=== PATIENT | female | born 2000 | race Caucasian/White ===

== ENCOUNTER 2025-05-29 20:51 | Emergency (ER) | payer BC, SELFPAY ==
[2025-05-29 20:58] VITALS: BP 142/79; PULSE 112; TEMP 37.6; O2SAT 98; BMI 27.5
--- NOTE | 2025-05-29 21:12 | ED_ITS ---
Documented by User: JACOB Bates 05/29/25 21:49 HPI HPI - General Adult General Chief complaint: Dental/Oral Stated complaint: INFECTION IN TOOTH, BODY ACHES, NAUSEAUS Time Seen by Provider: 05/29/25 21:03 Source: patient Mode of arrival: walk-in History of Present Illness HPI narrative: Patient is a 24-year-old female that presents with complaints of tooth pain and abscess formation on her lower front teeth. She cannot remember the last time she was at the dentist. She reports chills and bodyaches yesterday that have been somewhat improving today. She feels like the right side of her face is swollen. Related Data Previous Rx's ?Medication ?Instructions ?Recorded amoxicillin 875 mg-potassium 1 tab PO BID 10 days #20 tabs 05/29/25 clavulanate 125 mg tablet chlorhexidine gluconate 0.12 % 15 ml buccal BID 5 days #300 mL 05/29/25 mouthwash Allergies Allergy/AdvReac Type Severity Reaction Status Date / Time No Known Drug Allergies Allergy Verified 05/29/25 20:58 Review of Systems ROS Status of ROS 10 or more systems reviewed and unremark able except as noted in history and below PFSH PFSH Social History Little interest or pleasure in doing things: not at all Feeling down, depressed, or hopeless: not at all Exam Narrative Exam Narrative: General: No distress, age-appropriate Skin: Warm, dry, no pallor. No rash. Head: Normocephalic, atraumatic. Neck: Supple, mild swelling and submandibular tenderness on the right. Eye: Pupils are equal, round and EOMI. No scleral icterus. Ears, Nose, Mouth, and Throat: No nasal mucosal hypertrophy. Oral mucosa is moist, no posterior oropharynx erythema, uvula is mid-line. Bottom lower front teeth with gingivitis/erythema, dental caries. Cardiovascular: Regular Rate and Rhythm without murmur, gallop or rub. Respiratory: No accessory muscle use or respiratory distress. Musculoskeletal: Full ROM of all extremities, no calf or popliteal tenderness Neurological: A&O x4. No cranial nerve dysfunction observed. No truncal ataxia. Moves all extremities. Sensation intact. Psychiatric: Cooperative and interactive. Normal mood and affect. Constitutional Vital Signs, click to edit/add: Last Vital Signs Temp 99.7 F 05/29/25 20:58 Pulse 112 H 05/29/25 20:58 Resp 20 05/29/25 20:58 BP 142/79 H 05/29/25 20:58 Pulse Ox 98 05/29/25 20:58 O2 Del Method Room Air 05/29/25 20:58 Documenting provider has reviewed patient's vital signs: yes Course Vital Signs Vital signs: Vital Signs Temperature 99.7 F 05/29/25 20:58 Pulse Rate 112 H 05/29/25 20:58 Respiratory Rate 20 05/29/25 20:58 Blood Pressure 142/79 H 05/29/25 20:58 Pulse Oximetry 98 05/29/25 20:58 Oxygen Delivery Method Room Air 05/29/25 20:58 Temperature 99.7 F 05/29/25 20:58 Pulse Rate 112 H 05/29/25 20:58 Respiratory Rate 20 05/29/25 20:58 Blood Pressure 142/79 H 05/29/25 20:58 Pulse Oximetry 98 05/29/25 20:58 Oxygen Delivery Method Room Air 05/29/25 20:58 Medical Decision Making [facility] Narrative Medical decision making narrative: 24-year-old female presents with right-sided facial swelling, dental pain, and suspected lower anterior dental abscess. She reports chills and body aches yesterday, now improving, with increasing discomfort when opening her mouth but no trismus, airway compromise, dysphagia, or systemic toxicity on exam. Vitals stable. Physical exam notable for localized swelling without fluctuance requiring incision and drainage in the ED. Given concern for odontogenic infection with early facial involvement, patient was treated with a first dose of Augmentin in the ED and prescribed Augmentin BID ?10 days along with chlorhexidine mouth rinse. Low suspicion at this time for deep space infection (Adan?s angina), peritonsillar abscess, or systemic sepsis. Patient is stable for outpatient management. Strict return precautions discussed, including worsening swelling, fever, difficulty swallowing or breathing, or inability to open mouth. Advised to follow up urgently with a dentist and to return in 2 days if not improving. Differential Diagnosis Differential Diagnosis: Dental abscess, periapical abscess, cellulitis Discharge Plan Discharge Chief Complaint: Dental/Oral Clinical Impression: Gingivitis, Dental caries, Dental infection Patient Disposition: Home, Self-Care Time of Disposition Decision: 21:22 Condition: Good Mode of Transportation: Private Vehicle Prescriptions / Home Meds: New amoxicillin-pot clavulanate 875-125 mg tablet 1 tab PO BID 10 Days Qty: 20 0RF chlorhexidine gluconate 0.12 % mouthwash 15 ml buccal BID 5 Days Qty: 300 0RF Print Language: Nigerian Instructions: Dental Abscess (ED), Gingivitis (ED) Additional Instructions: You were evaluated today for tooth pain and a dental abscess. Your symptoms are most likely due to a bacterial infection. Medications: * Augmentin: Take as prescribed, twice daily for 10 days. Do not skip doses. * Chlorhexidine mouthwash: Use as directed, swish and spit. Do not swallow. * You may use acetaminophen or ibuprofen as needed for pain unless otherwise instructed. Care at Home: * Use warm compresses on the swollen area for comfort. * Stay well hydrated. * Continue gentle brushing and avoid chewing on the painful side. Follow-Up: * You need to see a dentist as soon as possible for definitive treatment. * Return to the ER or seek immediate care if you are not improved in 2 days. Return to the ER immediately if you develop: * Worsening facial swelling * Fever, chills, or feeling generally more ill * Trouble opening your mouth * Difficulty swallowing or breathing * Increased pain or inability to tolerate fluids * Any other concerning symptoms If you have any questions or worsening symptoms, please seek medical attention promptly. Return to the ED in 2 days if there are no improvements in your symptoms. Referrals: Dentist [Other] - 1 week Discharge Date/Time: 05/29/25 21:53 Documented by User: Cheikh Muller DO 05/29/25 22:42 HPI HPI - General Adult General Chief complaint: Dental/Oral Stated complaint: INFECTION IN TOOTH, BODY ACHES, NAUSEAUS Time Seen by Provider: 05/29/25 21:03 Related Data Previous Rx's ?Medication ?Instructions ?Recorded amoxicillin 875 mg-potassium 1 tab PO BID 10 days #20 tabs 05/29/25 clavulanate 125 mg tablet chlorhexidine gluconate 0.12 % 15 ml buccal BID 5 days #300 mL 05/29/25 mouthwash Allergies Allergy/AdvReac Type Severity Reaction Status Date / Time No Known Drug Allergies Allergy Verified 05/29/25 20:58 PFSH PFSH Social History Little interest or pleasure in doing things: not at all Feeling down, depressed, or hopeless: not at all Exam Constitutional Vital Signs, click to edit/add: Last Vital Signs Temp 99.7 F 05/29/25 20:58 Pulse 112 H 05/29/25 20:58 Resp 20 05/29/25 20:58 BP 142/79 H 05/29/25 20:58 Pulse Ox 98 05/29/25 20:58 O2 Del Method Room Air 05/29/25 20:58 Course Vital Signs Vital signs: Vital Signs Temperature 99.7 F 05/29/25 20:58 Pulse Rate 112 H 05/29/25 20:58 Respiratory Rate 20 05/29/25 20:58 Blood Pressure 142/79 H 05/29/25 20:58 Pulse Oximetry 98 05/29/25 20:58 Oxygen Delivery Method Room Air 05/29/25 20:58 Temperature 99.7 F 05/29/25 20:58 Pulse Rate 112 H 05/29/25 20:58 Respiratory Rate 20 05/29/25 20:58 Blood Pressure 142/79 H 05/29/25 20:58 Pulse Oximetry 98 05/29/25 20:58 Oxygen Delivery Method Room Air 05/29/25 20:58 Medical Decision Making [facility] Narrative Medical decision making narrative: 24-year-old female presents with right-sided facial swelling, dental pain, and suspected lower anterior dental abscess. She reports chills and body aches yesterday, now improving, with increasing discomfort when opening her mouth but no trismus, airway compromise, dysphagia, or systemic toxicity on exam. Vitals stable. Physical exam notable for localized swelling without fluctuance requiring incision and drainage in the ED. Given concern for odontogenic infection with early facial involvement, patient was treated with a first dose of Augmentin in the ED and prescribed Augmentin BID ?10 days along with chlorhexidine mouth rinse. Low suspicion at this time for deep space infection (Adan?s angina), peritonsillar abscess, or systemic sepsis. Patient is stable for outpatient management. Strict return precautions discussed, including worsening swelling, fever, difficulty swallowing or breathing, or inability to open mouth. Advised to follow up urgently with a dentist and to return in 2 days if not improving. ATTENDING ADDENDUM: Dr. Muller Patient seen and evaluated at bedside with midlevel provider. Agree with plan. Patient's history and physical examination is consistent with odontogenic infection, likely gingivitis. There is no evidence of necrotizing infection and she has no risk factors such as diabetes or immunocompromising diseases. She is afebrile. There is no evidence of airway compromise, neck swelling, or etiologies such as Adan's angina. Instructed her to return to the emergency department should her symptoms worsen despite being on oral antibiotics, to follow-up with her dentist. FINAL IMPRESSION: #Acute odontogenic infection, gingivitis DISPOSITION: Discharged home CONDITION: Good Discharge Plan Discharge Chief Complaint: Dental/Oral Clinical Impression: Gingivitis, Dental caries, Dental infection Patient Disposition: Home, Self-Care Time of Disposition Decision: 21:22 Condition: Good Mode of Transportation: Private Vehicle Prescriptions / Home Meds: New amoxicillin-pot clavulanate 875-125 mg tablet 1 tab PO BID 10 Days Qty: 20 0RF chlorhexidine gluconate 0.12 % mouthwash 15 ml buccal BID 5 Days Qty: 300 0RF Print Language: Nigerian Instructions: Dental Abscess (ED), Gingivitis (ED) Additional Instructions: You were evaluated today for tooth pain and a dental abscess. Your symptoms are most likely due to a bacterial infection. Medications: * Augmentin: Take as prescribed, twice daily for 10 days. Do not skip doses. * Chlorhexidine mouthwash: Use as directed, swish and spit. Do not swallow. * You may use acetaminophen or ibuprofen as needed for pain unless otherwise instructed. Care at Home: * Use warm compresses on the swollen area for comfort. * Stay well hydrated. * Continue gentle brushing and avoid chewing on the painful side. Follow-Up: * You need to see a dentist as soon as possible for definitive treatment. * Return to the ER or seek immediate care if you are not improved in 2 days. Return to the ER immediately if you develop: * Worsening facial swelling * Fever, chills, or feeling generally more ill * Trouble opening your mouth * Difficulty swallowing or breathing * Increased pain or inability to tolerate fluids * Any other concerning symptoms If you have any questions or worsening symptoms, please seek medical attention promptly. Return to the ED in 2 days if there are no improvements in your symptoms. Referrals: Dentist [Other] - 1 week Discharge Date/Time: 05/29/25 21:53
--- OUTSIDE RECORDS SUMMARY | 2025-05-29 21:34 | XMS_ITS | Clinical Summary ---
Author Organization [facility] Address [address], [address] [place] [address] Care Team Providers Care Motor Rebuilder Name Role Phone Geovany Garcia MD Primary Care Provider [phone] Allergies No known active allergies Medications MedicationSigDispense QuantityRefillsLast FilledStart DateEnd DateStatus hydrOXYzine HCl (ATARAX) 25 MG tablet Indications:Generalized anxiety disorder,Panic attackTAKE ONE TABLET BY MOUTH FOUR TIMES A DAY NEEDED FOR ANXIETY 120 tablet ctive spironolactone (ALDACTONE) 25 MG tablet Indications:RosaceaTake 1 tablet by mouth daily 90 tablet ctive escitalopram (LEXAPRO) 20 MG tablet Indications:Generalized anxiety disorder,Panic attackTake 1 tablet by mouth daily 90 tablet ctive Active Problems ProblemNoted DateDiagnosed DatePanic jrcdum5210/04/2021Generalized anxiety elihmqmh62/05/8859Nftbryl65/05/2022 Social History Tobacco UseTypesPacks/DayYears UsedDateSmoking Tobacco: NeverSmokeless Tobacco: Never Tobacco Cessation:Counseling Given: Not Answered Alcohol UseStandard Drinks/WeekCommentsYes0 (1 standard drink = 0.6 oz pure alcohol)sociallyOverall Financial Resource Strain (CARDIA)AnswerDate RecordedHow hard is it for you to pay for the very basics like food, housing, medical care, and heating?Not hard at all08/14/2022HQ-2AnswerDate RecordedPHQ-9 Total Score0 08/14/2022Hunger Vital SignAnswerDate RecordedWithin the past 12 months, you worried that your food would run out before you got the money to buymore.Never true08/14/2022Within the past 12 months, the food you bought just didn't last and you didn't have money to get more.Never true08/14/2022RAPARE - TransportationAnswerDate RecordedLack of Transportation (Medical)Not on file 08/14/2022In the past 12 months, has lack of transportation kept you from meetings, work, or from getting things needed for daily living?No08/14/2022 Housing Stability Vital SignAnswerDate RecordedUnable to Pay for Housing in the Last YearNot on file08/14/2022Number of Places Lived in the Last YearNot on file 08/14/2022In the last 12 months, was there a time when you did not have a steady place to sleep or slept in ashelter (including now)?No08/14/2022Food Insecurity AnswerDate RecordedWithin the past 12 months, you worried that your food would run out before you got the money to buymore.Within the past 12 months, the food you bought just didn't last and you didn't have money to get more.regnantCommentsNoSex and Gender InformationValueDate Recorded Sex Assigned at BirthNot on fileLegal HkyKxhjpk87/01/2022 1:03 PM EDTGender IdentityNot on fileSexual OrientationNot on file Last Filed Vital Signs Vital SignReadingTime TakenCommentsBlood Uekvndbv193/72008/14/2022 3:57 PM EST Gzhbz048108/14/2022 3:57 PM ESTTemperature--Respiratory Hzkq6460 2:59 PM EDTOxygen Yfxuucqpmn11%08/14/2022 3:57 PM ESTInhaled Oxygen Concentration-- Xlubum38.1 kg (181 lb)08/14/2022 3:57 PM BEARflern730 cm (5' 3 )08/14/2022 3:57 PM ESTBody Mass Index32.0608/14/2022 3:57 PM EST Plan of Treatment Health MaintenanceDue DateLast DoneCommentsDepression Xjddxs34/29/2011HPV vaccine (1 - 3-dose series)2013DTaP/Tdap/Td vaccine (1 - Tdap)2017 Hepatitis B vaccine (1 of 3 - 19+ 3-dose series)2017Pap smear10/29/2019Flu vaccine (#1)5COVID-19 Vaccine (1 - season)2025HIV screen DiscontinuedHepatitis A vaccineAged OutNo longer eligible based on patient's age to complete this topicHepatitis C screenDiscontinuedHib vaccineAged OutNo longer eligible based on patient's age to complete this topicMeningococcal (ACWY) vaccineAged OutNo longer eligible based on patient's age to complete this topic Meningococcal B vaccineAged OutNo longer eligible based on patient's age to complete this topicPneumococcal 0-49 years VaccineAged OutNo longer eligible based on patient's age to complete this topicPolio vaccineAged OutNo longer eligible based on patient's age to complete this topicVaricella vaccine Discontinued Insurance * Guarantor: Chema Abdullahi TypeRelation to PatientDate of BirthPhone Billing AddressPersonal/WuwihbXnrp56/29/2001 [address] [phone] Care Teams Team MemberRelationshipSpecialtyStart DateEnd Date Geovany Garcia MD [address] [facility] [address] [place] [address] PCP - GeneralFamily Medicine10/04/21
[2025-05-29] MEDS: AMOXICILLIN/POT CLAV 875-125 MG TABLET 1 TAB PO (21:49)
== END 2025-05-29 21:53 | disposition home or self-care (01) ==
LOC: ER 21:30
PROVIDERS: Emergency Provider Student in an Organized Health Care Education/Training Program
DX: K05.10 Chronic gingivitis, plaque induced (principal); K02.9 Dental caries, unspecified; K04.7 Periapical abscess without sinus
CPT/HCPCS: 99283

== ENCOUNTER 2025-05-31 18:04 | Emergency (ER) | payer BC, SELFPAY ==
--- OUTSIDE RECORDS SUMMARY | 2019-07-31 10:41 | XMS_ITS | Continuity of Care Document ---
Author Organization [facility] Address [address] [place] [address] Phone Care Team Providers Care Liquor Merchant Name Role Phone Ludmila Fortune Unavailable Unavailable Allergies, Adverse Reactions, Alerts Substance Reaction Status Criticality No Known Allergies Active No Inform ation Medications Medication Instructions Dosage Effective Dates (start - stop) Status Comments Flagyl 500 mg tablet take 1 tablet by oral route every 12 hours 500 MG - Active Diflucan 150 mg tablet take 1 tablet by oral route once, repeat dose in 3 days - Active azithromycin 500 mg tablet take 2 tablet by oral route once today - No Longer Active Procedures Procedure Date C. TRACH/N. GONORR RNA, TMA, CERVICAL/UR ETHRAL/VAG OV EST DETAILED Periodic Oral Evaluation Established Patient Prophylaxis Adult Oral Hygiene Instructions Topical Application Of Fluoride 016 Bitewings Four Films Panoramic Film Prophylaxis Adult Oral Hygiene Instructions Topical Application Of Fluoride 014 Complete Dental Periodic Oral Evaluation Established Patient Periodic Oral Evaluation Established Patient Bitewings Four Films Prophylaxis Adult Topical Application Of Fluoride 013 Dental Work Complete 2013 Exam 13 Resin-Based Composite One Surface, Posterior Prophylaxis Adult Topical Application Of Fluor juventino (Prophylaxis Not Included) Adult Comprehensive Oral Evaluatio n New Or Established Patient Bitewings Four Films Panoramic Film First Visit With Dental Advance Directives Directive Yes / No Effective Date File Name No Information Encounters Encounter Description Practice Location Reason(s) For Visit Diagnoses Date Provider Providers Copied on Encounter [facility], [address], [place], [place], [id number], [place] tel: [phone] [facility] OPERATOR No Information 0 Walker Ludmila. [address] [facility], [id number] [place], [place], [place], [id number], [place]. tel: [address] [place] [address], [address], [place], [place], [id number], [place] tel: [phone] [facility] [place] [facility] No Information 0 Walker Ludmila. [address] [facility], [id number] [place], [place], [place], [id number], [place]. tel: [phone] OV EST DETAILED [facility], [address], [place], [place], [id number], [place] tel: [phone] [facility] Medical pelvic pain (chief complaint)He alth Maintenance (chief complaint) Vaginal dischargeScree n for STD (sexually transmitted disease) 0 Walker Ludmila. [address] [facility], [id number] , [place], [place], [id number], [place]. tel: [address] [place] [address], [address], [place], [place], [id number], [place] tel: [phone] [facility] Dental No Information 6 Laci Milian. [address], [id number] , [place], [address], [place]. tel: [address] [place] [address], [address], [place], [place], [id number], [place] tel: [phone] [facility] Dental Encounter for dental examination and cleaning with abnormal findings 6 Kelly Lyman. [address], [place], [address], [place]. tel:[phone] [facility], [address], [place], [place], [id number], [place] tel: [phone] [facility] Dental examination Mar-0 4 Sixto Rivera. [address], [id number] , [place], [place], [id number], [place]. tel: [phone] [facility], [address], [place], [place], [id number], [place] tel: [phone] [facility] No Information 4 Shyanne Cabrera. [address], [id number] , [place], [place], [id number], [place]. tel: [phone] [facility], [address], [place], [place], [address] [place] [address], tel: [phone] [facility] No Information 3 Sixto Rivera. [address], [id number] , [place], [place], [id number], [place]. tel: [phone] [facility], [address], [place], [place], [id number], [place] tel: [phone] [facility] No Information 2 No Information [facility], [address], [place], [place], [id number], [place] tel: [phone] [facility] No Information 2 Shahram Latham. [address], [id number] [place], [place], [place], [id number], [place]. tel:[phone] [facility], [address], [place], [place], [id number], tel: [phone] [facility] No Information 2 No Information Family History Family Member Type Diagnosis Age At Onset No Information Payers Payer name Insurance type Covered constitution party ID Authoriza tion(s) No Information Social History Type Description Quantity Date Captured Comments Alcohol Use Details Unknown Caffeine Use Details Unknown Tobacco Use Status Smoking Status No Information Sex Female Sexual Orientation Straight or heterosexual Gender Identity Female Chief Complaint And Reason For Visit No Information Reason For Referral Reason For Referral No Information Plan Of Treatment Date Type Action Status Goal Chlamydia/GC, DNA Probe. Due on due Goal HIV Ab. Due on d ue Goal Dental Exam. Due on due Goal PHQ-9. Due on du e Goal Chlamydia/GC, DNA Probe. Due on due Goal HIV Ab. Due on d ue Goal PHQ-9. Due on du e Goal Dental Exam. Due on due History Of Present Illness Encounter Date Complaint History Of Prese nt Illness Health Maintenance due for flu v accine pelvic pain Her symptoms hav e been moderate. Last menstrual period was 07/17/2019. Additional information: Alone with Yellow, fishy smell Discharge X 2-3 weeks agoLMP: 07/17/2019//calixto. Functional Status Date Functional Assessmen t No Information Instructions Date Instruction Additional Infor mation No Information Assessments Type Assessment Date No Information Patient Care Teams Name Effective Dates (start - stop) Status Members No Information
[2025-05-31 18:12] VITALS: BP 120/80; PULSE 107; TEMP 37.9; O2SAT 96; BMI 27.5
--- OUTSIDE RECORDS SUMMARY | 2025-05-31 18:25 | XMS_ITS | Clinical Summary ---
Author Organization [facility] Address [address], [address] [place] [address] Care Team Providers Care Song Plugger Name Role Phone Geovany Garcia MD Primary Care Provider [phone] Allergies No known active allergies Medications MedicationSigDispense [...] tablet ctive Active Problems ProblemNoted DateDiagnosed DatePanic quanyz5610/04/2021Generalized anxiety zyknxrpj94/05/8621Hccohst53/05/2022 Social History Tobacco UseTypesPacks/DayYears UsedDateSmoking Tobacco: NeverSmokeless [...] Recorded Sex Assigned at BirthNot on fileLegal OqxStghic84/01/2022 1:03 PM EDTGender IdentityNot on fileSexual OrientationNot on file Last Filed Vital Signs Vital SignReadingTime TakenCommentsBlood Ybljbqll287/72008/14/2022 3:57 PM EST Xzkgj303108/14/2022 3:57 PM ESTTemperature--Respiratory Stxg3853 2:59 PM EDTOxygen Lgqgydmedm19%08/14/2022 3:57 PM ESTInhaled Oxygen Concentration-- Otqemz43.1 kg (181 lb)08/14/2022 3:57 PM XEKDbcrez448 cm (5' 3 )08/14/2022 3:57 PM ESTBody Mass Index32.0608/14/2022 3:57 PM EST Plan of Treatment Health MaintenanceDue DateLast DoneCommentsDepression Zjkiba68/29/2011HPV vaccine (1 - 3-dose series)2013DTaP/Tdap/Td vaccine (1 [...] Abdullahi TypeRelation to PatientDate of BirthPhone Billing AddressPersonal/DzjjayMwvx62/29/2001 [address] [phone] Care Teams Team MemberRelationshipSpecialtyStart DateEnd Date Geovany Garcia MD [address] [facility] [address] [place] [address] PCP - GeneralFamily Medicine10/04/21
--- NOTE | 2025-05-31 18:30 | ED_ITS ---
HPI HPI - General Adult General Chief complaint: Dental/Oral Stated complaint: dental Time Seen by Provider: 05/31/25 18:22 Source: patient Mode of arrival: walk-in History of Present Illness HPI narrative: 24-year-old female presents to the emergency department for pain in her mouth. She was here few days ago and at that time had some dental pain and she was prescribed amoxicillin and chlorhexidine. Since then she has developed discrete round lesions on her mucosal side of her lips as well as the gingiva. No drainage. The pain is worse when she eats. Related Data Previous Rx's ?Medication ?Instructions ?Recorded amoxicillin 875 mg-potassium 1 tab PO BID 10 days #20 tabs 05/29/25 clavulanate 125 mg tablet chlorhexidine gluconate 0.12 % 15 ml buccal BID 5 days #300 mL 05/29/25 mouthwash Allergies Allergy/AdvReac Type Severity Reaction Status Date / Time No Known Drug Allergies Allergy Verified 05/29/25 20:58 Review of Systems ROS Narrative A ten point review of systems is negative except as noted above. PFSH PFSH Social History Little interest or pleasure in doing things: not at all Feeling down, depressed, or hopeless: not at all Exam Narrative Exam Narrative: Nurses note and vital signs reviewed General:The patient appears in no apparent distress. Skin:Warm, dry, no pallor noted.There is no rash noted. Head:Normocephalic, atraumatic Eye: Normal conjunctiva, no drainage Ears, Nose, Mouth, and Throat: oral mucosa is moist. Nares patent. She has numerous round slight ulcerations on the gingiva and inside of her lips. Cardiovascular:Regular Rate and Rhythm Respiratory:Patient is in no distress, no accessory muscle use, lungs are clear to auscultation, no wheezing, rales or rhonchi Back:non-tender GI: Soft and nontender Musculoskeletal: The patient has no evidence of calf tenderness, no pitting edema, symmetrical pulses noted bilaterally Neurological: Awake and alert Psychiatric:Cooperative Constitutional Vital Signs, click to edit/add: Last Vital Signs Temp 100.2 F 05/31/25 18:12 Pulse 107 H 05/31/25 18:12 Resp 18 05/31/25 18:12 BP 120/80 05/31/25 18:12 Pulse Ox 96 05/31/25 18:12 O2 Del Method Room Air 05/31/25 18:12 Course Vital Signs Vital signs: Vital Signs Temperature 100.2 F 05/31/25 18:12 Pulse Rate 107 H 05/31/25 18:12 Respiratory Rate 18 05/31/25 18:12 Blood Pressure 120/80 05/31/25 18:12 Pulse Oximetry 96 05/31/25 18:12 Oxygen Delivery Method Room Air 05/31/25 18:12 Temperature 100.2 F 05/31/25 18:12 Pulse Rate 107 H 05/31/25 18:12 Respiratory Rate 18 05/31/25 18:12 Blood Pressure 120/80 05/31/25 18:12 Pulse Oximetry 96 05/31/25 18:12 Oxygen Delivery Method Room Air 05/31/25 18:12 Medical Decision Making MDM Narrative Medical decision making narrative: My clinical impression is that she has viral stomatitis and she was prescribed a handwritten prescription for MBX solution. Treatment diagnosis and follow-up were discussed with the patient. Differential Diagnosis Differential Diagnosis: Viral stomatitis, gingivitis Discharge Plan Discharge Chief Complaint: Dental/Oral Clinical Impression: Viral stomatitis Patient Disposition: Home, Self-Care Time of Disposition Decision: 18:27 Condition: Good Mode of Transportation: Private Vehicle Prescriptions / Home Meds: No Action amoxicillin-pot clavulanate 875-125 mg tablet 1 tab PO BID 10 Days Qty: 20 0RF chlorhexidine gluconate 0.12 % mouthwash 15 ml buccal BID 5 Days Qty: 300 0RF Print Language: Indonesian Instructions: Gingivostomatitis (ED) Referrals: Physician,Non-Staff, MD [Primary Care Provider] - 1 week
== END 2025-05-31 18:46 | disposition home or self-care (01) ==
PROVIDERS: Emergency Provider Emergency Medicine
DX: K12.1 Other forms of stomatitis (principal); R50.9 Fever, unspecified
CPT/HCPCS: 99283